=== PATIENT | male | born 1990 | race African-American/Black ===

== ENCOUNTER 2023-09-19 01:18 | Emergency (ER) | payer MEDICAID ==
[~2023-09-19] VITALS: Ht 188 cm; Wt 98.0 kg
[2023-09-19 01:39] VITALS: BP 123/67; PULSE 78; RESP 17; TEMP 97.4; O2SAT 99
[2023-09-19] MEDS ORDERED: CYCL5TAB PO (03:50)
[2023-09-19] MEDS ORDERED: ACET-2708 PO (03:50)
[2023-09-19] MEDS: ACETAMINOPHEN 325MG TABLET PO STA (03:58)
[2023-09-19] MEDS: CYCLOBENZAPRINE 10MG TABLET PO ONE (03:59)
== END 2023-09-19 04:02 | disposition home or self-care (01) ==
LOC: ER 02:05
DX: M25.511 Pain in right shoulder (principal); M62.838 Other muscle spasm; Z88.0 Allergy status to penicillin; Z88.6 Allergy status to analgesic agent
CPT/HCPCS: 99283

== ENCOUNTER 2023-11-14 20:57 | Emergency (ER) | payer MEDICAID ==
[~2023-11-14] VITALS: Ht 188 cm; Wt 95.0 kg
[~2023-11-14 20:57] MED LIST: ACET-2708 PO; CYCL5TAB PO
[2023-11-14 21:02] VITALS: BP 142/72; PULSE 82; RESP 16; O2SAT 97
[2023-11-14] MEDS ORDERED: PRED5DRO22 RIGHTEYE (23:24)
[2023-11-15] MEDS: ACETAMINOPHEN 500MG TABLET PO ONE (00:08)
== END 2023-11-15 01:49 | disposition home or self-care (01) ==
LOC: ER 20:57
DX: H44.131 Sympathetic uveitis, right eye (principal); Z88.0 Allergy status to penicillin; Z79.899 Other long term (current) drug therapy
CPT/HCPCS: 99282; 99283